=== PATIENT | female | born 1995 | race Caucasian/White ===

== ENCOUNTER 2019-10-14 08:00 | Outpatient (CLI) | payer OTHER ==
[2019-10-14 17:28] LABS: MUDS CUTOFF CONCENTRATIONS CUTOFF CONC BELOW:
[2019-10-14 17:46] LABS: BILIRUBIN,URINE NEGATIVE (NEGATIVE); GLUCOSE, URINE (UA) NEGATIVE (NEGATIVE); KETONES,URINE (UA) NEGATIVE (NEGATIVE); LEUKOCYTE ESTERASE, URINE NEGATIVE (NEGATIVE); NITRITE,URINE NEGATIVE (NEGATIVE); OCCULT BLOOD,URINE NEGATIVE (NEGATIVE); PROTEIN,URINE NEGATIVE (NEGATIVE); UROBILINOGEN,URINE 0.2 (NORMAL) E.U./dL (NORMAL)
[2019-10-14 17:54] LABS: CLARITY,URINE CLOUDY (CLEAR)
[2019-10-14 17:58] LABS: COCAINE SCREEN URINE NEGATIVE (NEGATIVE); METHAMPHETAMINES SCREEN, URINE NEGATIVE (NEGATIVE); OPIATE SCREEN, URINE NEGATIVE (NEGATIVE)
[2019-10-14 17:59] LABS: AMPHETAMINE SCREEN,URINE NEGATIVE (NEGATIVE); BENZODIAZEPINES SCREEN, URINE NEGATIVE (NEGATIVE); METHADONE SCREEN, URINE NEGATIVE (NEGATIVE); OXYCODONE SCREEN, URINE NEGATIVE (NEGATIVE); PROPOXYPHENE SCREEN, URINE NEGATIVE (NEGATIVE); TRICYCLIC ANTIDEPRESSANT,URINE NEGATIVE (NEGATIVE)
[2019-10-14 18:58] LABS: BACTERIA,URINE Rare /HPF (None Seen); RBC,URINE None Seen /HPF (0-5); SQUAMOUS EPITHELIAL CELL,UR FEW Squamous (<= Few)
== END 2019-10-14 23:59 | disposition home or self-care (01) ==
LOC: LAB.R 08:00
PROVIDERS: ATTEND Nurse Practitioner Obstetrics & Gynecology
DX: Z32.01 Encounter for pregnancy test, result positive (principal)
CPT/HCPCS: 80306; 81001; 81003; 87086

== ENCOUNTER 2019-10-29 15:03 | Emergency (ER) | payer OTHER ==
--- NOTE | 2019-10-29 15:56 | ED Physician Documentation ---
PD HPI FEMALE - Stated complaint Stated Complaint: FEM - Chief complaint Chief Complaint: Abd Pain - History obtained from History obtained from: Patient (G1, P0 at 6 weeks and 5 days has had light vaginal bleeding with mild cramping today.) Review of Systems Ten Systems: 10 systems reviewed and negative Constitutional: denies: Fever, Chills Cardiac: reports: Reviewed and negative Respiratory: reports: Reviewed and negative PD PAST MEDICAL HISTORY - Allergies Allergies/Adverse Reactions: Allergies Allergy/AdvReac Type Severity Reaction Status Date / Time No Known Drug Allergies Allergy Verified 10/29/19 15:06 PD ED PE NORMAL - Vitals Vital signs reviewed: Yes - General General: Alert and oriented X 3, No acute distress - HEENT HEENT: PERRL, EOMI - Neck Neck: Supple, no meningeal sign, No bony TTP - Cardiac Cardiac: RRR, No murmur - Respiratory Respiratory: No respiratory distress, Clear bilaterally - Female Female : Other (No obvious IUP on bedside ultrasound. No free fluid either though.) - Back Back: No CVA TTP, No spinal TTP - Derm Derm: Normal color, No rash - Neuro Neuro: Alert and oriented X 3, Normal speech Results - Vitals Vitals: Vital Signs - 24 hr 10/29/19 15:06 Temperature 36.5 C Heart Rate 87 Respiratory 16 Rate Blood Pressure 116/70 O2 Saturation 100 Oxygen O2 Source Room air - Labs Labs: Laboratory Tests 10/29/19 10/29/19 10/29/19 15:52 16:13 16:13 WBC 9.9 RBC 4.52 Hgb 13.5 Hct 39.6 MCV 87.6 MCH 29.9 MCHC 34.1 RDW 12.3 Plt Count 330 MPV 10.1 Neut # (Auto) 6.4 Lymph # (Auto) 2.4 Mcminn # (Auto) 0.5 Eos # (Auto) 0.5 Baso # (Auto) 0.0 Absolute Nucleated RBC 0.00 Nucleated RBC % 0.0 Sodium Potassium Chloride Carbon Dioxide Anion Gap BUN Creatinine Estimated GFR (MDRD) Glucose Calcium HCG, Quant Urine Color YELLOW Urine Clarity CLEAR Urine pH 7.5 Ur Specific [place] 1.015 Urine Protein NEGATIVE Urine Glucose (UA) NEGATIVE Urine Ketones NEGATIVE Urine Occult Blood MODERATE H Urine Nitrite NEGATIVE Urine Bilirubin NEGATIVE Urine Urobilinogen 0.2 (NORMAL) Ur Leukocyte Esterase NEGATIVE Urine RBC 0-5 Urine WBC 0-3 Ur Squamous Epith Cells MANY Squamous H Urine Bacteria None Seen Ur Microscopic Review INDICATED Urine Culture Comments NOT INDICATED Blood Type B NEGATIVE 10/29/19 10/29/19 16:13 16:13 WBC RBC Hgb Hct MCV MCH MCHC RDW Plt Count MPV Neut # (Auto) Lymph # (Auto) Mcminn # (Auto) Eos # (Auto) Baso # (Auto) Absolute Nucleated RBC Nucleated RBC % Sodium 139 Potassium 3.4 L Chloride 104 Carbon Dioxide 26 Anion Gap 9.0 BUN 8 Creatinine 0.6 Estimated GFR (MDRD) 125 Glucose 95 Calcium 9.7 HCG, Quant 3913.00 Urine Color Urine Clarity Urine pH Ur Specific [place] Urine Protein Urine Glucose (UA) Urine Ketones Urine Occult Blood Urine Nitrite Urine Bilirubin Urine Urobilinogen Ur Leukocyte Esterase Urine RBC Urine WBC Ur Squamous Epith Cells Urine Bacteria Ur Microscopic Review Urine Culture Comments Blood Type - Rads (name of study) OB ultrasound Radiology: EMP read contemporaneously (Apparent gestational sac attributable to early , discordant with dates.) PD MEDICAL DECISION MAKING - ED course ED course: 24-year-old hemodynamically stable woman with normal H&H presents with vaginal bleeding in early . She was pretty sure about her LMP being September 11 which puts her at 6 weeks and 5 days. Ultrasound as shown and beta-hCG 3913. Recommended 1 week repeat ultrasound in 48 hours beta-hCG. She was administered Rhophylac here Departure - Departure Disposition: Home, Self Care Condition: Good Record reviewed to determine appropriate education?: Yes Instructions: ED Miscarriage Poss Follow-Up: Manuela Orozco, DORIAN, DEFENSIVE DRIVING INSTRUCTOR [Provider Admit Priv/Credential] - 10/31/19 Comments: Beta-hCG is 3913 today, this should be rechecked in 48 hours or so. This can be done through the obstetrics office which you have already established care with, if running into trouble, return here for reevaluation. Also return if worse. Note for future reference the blood type is O-, as such you will need Rh immunoglobulin going forward with this and further pregnancies. You were administered a dose here tonight. Keep the ultrasound appointments you have already scheduled for a week from now.
[2019-10-29 16:14] LABS: BILIRUBIN,URINE NEGATIVE (NEGATIVE); GLUCOSE, URINE (UA) NEGATIVE (NEGATIVE); KETONES,URINE (UA) NEGATIVE (NEGATIVE); LEUKOCYTE ESTERASE, URINE NEGATIVE (NEGATIVE); NITRITE,URINE NEGATIVE (NEGATIVE); OCCULT BLOOD,URINE MODERATE (NEGATIVE); PH,URINE 7.5 PH (5.0-7.5); PROTEIN,URINE NEGATIVE (NEGATIVE); UROBILINOGEN,URINE 0.2 (NORMAL) E.U./dL (NORMAL)
[2019-10-29 16:15] LABS: CLARITY,URINE CLEAR (CLEAR)
[2019-10-29 16:26] LABS: BASOPHILS % (AUTO) 0.3 %; EOSINOPHILS # (AUTO) 0.5 10^3/uL (0.0-0.7); EOSINOPHILS % (AUTO) 5.3 %; HGB - HEMOGLOBIN 13.5 g/dL (12.0-16.0); LYMPHOCYTES # (AUTO) 2.4 10^3/uL (1.5-3.5); LYMPHOCYTES % (AUTO) 23.8 %; MEAN CORPUSCULAR HEMOGLOBIN 29.9 pg (27.0-31.0); MEAN CORPUSCULAR HGB CONC 34.1 g/dL (32.0-36.0); MEAN CORPUSCULAR VOLUME 87.6 fL (81.0-99.0); MEAN PLATELET VOLUME 10.1 fL (7.9-10.8); MONOCYTES # (AUTO) 0.5 10^3/uL (0.0-1.0); MONOCYTES % (AUTO) 5.3 %; NEUTROPHILS # (AUTO) 6.4 10^3/uL (1.5-6.6); PLT - PLATELET COUNT 330 10^3/uL (130-450); RED BLOOD COUNT 4.52 10^6/uL (4.20-5.40); RED CELL DISTRIBUTION WIDTH 12.3 % (12.0-15.0); WHITE BLOOD COUNT 9.9 x10^3/uL (4.8-10.8)
[2019-10-29 16:27] LABS: BACTERIA,URINE None Seen /HPF (None Seen); RBC,URINE 0-5 /HPF (0-5); SQUAMOUS EPITHELIAL CELL,UR MANY Squamous (<= Few)
[2019-10-29 16:28] LABS: CALCIUM 9.7 mg/dL (8.5-10.3); CREATININE 0.6 mg/dL (0.4-1.0)
[2019-10-29] MEDS ORDERED: RHO(D) IMMUNE GLOBULIN 300 MCG SYRINGE IM STA (16:51)
--- NOTE | 2019-10-29 17:37 | Ultrasound Report ---
PROCEDURE: OB First Trimester INDICATIONS: vag bleed 6w5d OUTSIDE/PRIOR DATING DATA: Last menstrual period (LMP): 10/09/2019. LMP-based estimated date of delivery (ANGE): 06/24/2020. First dating scan (date and location): Not applicable. Estimated date of delivery (ANGE) from first dating scan: Not applicable. TECHNIQUE: Real-time scanning was performed of the fetus and maternal pelvic organs, with image documentation. COMPARISON: None FINDINGS: Embryo: An apparent intrauterine gestational sac is seen, which measures 7 mm, which corresponds to an estimate gestational age of 5 weeks 3 days. No findings of a pole or yolk sac can be seen at this time. Heterogeneous material is seen surrounding the apparent gestational sac. Measurement variability in dating: +/- 4 weeks by LMP, +/- 7 days by mean sac diameter (use before 6 weeks gestation if crown-rump length not able to be measured), +/- 5 days by crown-rump length (6-12 weeks gestation). Maternal organs: Ovaries are within normal limits, with an apparent right ovarian corpus luteum. Li mited images through the kidneys demonstrate no hydronephrosis. IMPRESSION: An apparent intrauterine gestational sac is seen, which is attributed to an early , with an estimated gestational age of 5 weeks 3 days. Close clinical follow-up with serial beta hCG measurements are recommended, as clinically appropriate . Note: Concordant preliminary findings given by the inspector boiler upon the completion of the examination to Dr. Doyle at 5:00 PM on 10/28/2019 Reviewed by: Malik Jones MD on 10/29/2019 4:36 PM YONATAN Approved by: Malik Jones MD on 10/29/2019 4:36 PM YONATAN Station ID: [id number]
[2019-10-29] MEDS ORDERED: RHO(D) IMMUNE GLOBULIN 300 MCG SYRINGE ONE (17:45)
[2019-10-29 17:55] VITALS: BP 110/79
--- NOTE | 2019-10-29 18:29 | Ultrasound Report ---
PROCEDURE: OB Transvaginal INDICATIONS: vag bleed 6w5d OUTSIDE/PRIOR DATING DATA: Last menstrual period (LMP): 10/09/2019. LMP-based estimated date of deliv jacky (ANGE): 06/24/2020. First dating scan (date and location): Not applicable. Estimated date of delive ry (ANGE) from first dating scan: Not applicable. TECHNIQUE: Real-time scanning was performed of the fetus and maternal pelvic organs, with image documentation. COMPARISON: None FINDINGS: Embryo: An a pparent intrauterine gestational sac is seen, which measures 7 mm, which corresponds to an estimate g estational age of 5 weeks 3 days. No findings of a pole or yolk sac can be seen at this time. H eterogeneous material is seen surrounding the apparent gestational sac. Measurement variability in d ating: +/- 4 weeks by LMP, +/- 7 days by mean sac diameter (use before 6 weeks gestation if crown-rum p length not able to be measured), +/- 5 days by crown-rump length (6-12 weeks gestation). Maternal organs: Ovaries are within normal limits, with an apparent right ovarian corpus luteum. Limited image s through the kidneys demonstrate no hydronephrosis. IMPRESSION: An apparent intrauterine gestati onal sac is seen, which is attributed to an early , with an estimated gestational age of 5 w eeks 3 days. Close clinical follow-up with serial beta hCG measurements are recommended, as clinical ly appropriate. Note: Concordant preliminary findings given by the pile driving supervisor upon the completion of the examination to Dr. Doyle at 5:00 PM on 10/28/2019 Reviewed by: Malik Jones MD on 10/29/2019 5:27 PM YONATAN Approved by: Malik Jones MD on 10/29/2019 5:27 PM YONATAN Station ID: [id number]
== END 2019-10-29 18:04 | disposition home or self-care (01) ==
LOC: ED 15:03
DX: O20.0 Threatened abortion (principal); Z3A.01 Less than 8 weeks gestation of pregnancy
CPT/HCPCS: 36415; 76801; 76817; 80048; 81001; 81003; 84702; 85025; 86900; 86901; 87086; 96372; 99284

== ENCOUNTER 2019-10-30 00:02 | Emergency (ER) | payer OTHER ==
--- NOTE | 2019-10-30 00:19 | ED Physician Documentation ---
PD HPI FEMALE - Stated complaint Stated Complaint: F /CRAMPS - Chief complaint Chief Complaint: Abd Pain - History obtained from History obtained from: Patient - History of Present Illness Timing - onset: Today Timing - details: Abrupt onset, Intermittant Associated symptoms: Pelvic pain, Vaginal bleeding. No: Fever Contributing factors: OB-PSYCHIATRY RESIDENT History: G (1), P (0) Recently seen: Emergency Dept - Additional information Additional information: T+R earlier this afternoon for threatened miscarriage (vaginal bleeding in first trimester). w/u included blood tests and US. she returns due to mild increased bleeding but mostly due to increased pelvic cramping pain Review of Systems Constitutional: reports: Reviewed and negative Cardiac: reports: Reviewed and negative Respiratory: reports: Reviewed and negative GI: denies: Abdominal Pain (pelvic cramping but not abdominal pain per se), Nausea, Vomiting : reports: Now EGA. denies: Dysuria, Frequency PD PAST MEDICAL HISTORY - Past Medical History Cardiovascular: None Respiratory: None Neuro: None Endocrine/Autoimmune: None GI: None PSYCHIATRY RESIDENT: None : None HEENT: None Psych: None Musculoskeletal: None Derm: None - Past Surgical History Past Surgical History: No - Present Medications Home Medications: Ambulatory Orders Medication Instructions Recorded Confirmed HYDROcod/ACETAM 5/325 [Bynum 5/325] 1 - 2 ea PO Q6H PRN #8 tablet 10/30/19 - Allergies Allergies/Adverse Reactions: Allergies Allergy/AdvReac Type Severity Reaction Status Date / Time No Known Drug Allergies Allergy Verified 10/30/19 00:04 - Social History Does the pt smoke?: No Smoking Status: Never smoker Does the pt drink ETOH?: No Does the pt have substance abuse?: No - Immunizations Immunizations are current?: Yes - POLST Patient has POLST: No PD ED PE NORMAL - Vitals Vital signs reviewed: Yes - General General: Alert and oriented X 3, No acute distress, Well developed/nourished - Abdomen Abdomen: Soft, Non tender, Non distended - Back Back: No CVA TTP Results - Vitals Vitals: Vital Signs - 24 hr 10/30/19 10/30/19 10/30/19 00:04 00:07 01:47 Temperature 36.5 C 4 C L 36.9 C Heart Rate 98 75 Respiratory 14 18 Rate Blood Pressure 117/66 100/68 O2 Saturation 100 100 Oxygen O2 Source Room air PD MEDICAL DECISION MAKING - ED course Complexity details: reviewed old records, re-evaluated patient, considered differential, d/w patient ED course: patient describes mild vaginal bleeding with increased bleeding since evaluation in this ED earlier this afternoon (asked if it is less than a pad per hour, she confidently answers in the affirmative). her chief concern is pelvic cramping that is intense and uncomfortable. repeat emergent testing is not indicated at this time. focussed on pain control and options discussed, she is given 2 tablets 5mg / 325mg hydrocodone/acetaminophen and on reevaluation reports good pain relief and is comfortable with d/c home, return if worse. Departure - Departure Disposition: Home, Self Care Clinical Impression: Vaginal bleeding during Condition: Good Instructions: ED Miscarriage Poss Follow-Up: Indu Maldonado MD [Provider Admit Priv/Credential] - Prescriptions: HYDROcod/ACETAM 5/325 [Bynum 5/325] 1 - 2 ea PO Q6H PRN #8 tablet PRN Reason: Pain Comments: Your blood type is B NEGATIVE (the instructions provided on your previous visit were incorrect). Discharge Date/Time: 10/30/19 01:40
[2019-10-30] MEDS ORDERED: HYDROcod/ACETAM 5/325 MG TABLET PO STA (00:57)
[2019-10-30 01:48] VITALS: BP 100/68
== END 2019-10-30 01:40 | disposition home or self-care (01) ==
LOC: ED 00:02
DX: O46.91 Antepartum hemorrhage, unspecified, first trimester (principal); Z3A.00 Weeks of gestation of pregnancy not specified
CPT/HCPCS: 99282; 99283; A9270

== ENCOUNTER 2019-10-31 11:58 | Outpatient (CLI) | payer OTHER | END 2019-10-31 11:59 | disposition home or self-care (01) | LOC: LAB 11:58 | PROVIDERS: ATTEND Obstetrics & Gynecology | DX: O03.9 Complete or unspecified spontaneous abortion without complication (principal) | CPT/HCPCS: 36415; 84702 ==

== ENCOUNTER 2019-11-10 10:11 | Outpatient (CLI) | payer OTHER | END 2019-11-10 10:12 | disposition home or self-care (01) | LOC: LAB 10:11 | PROVIDERS: ATTEND Nurse Practitioner Obstetrics & Gynecology | DX: O03.9 Complete or unspecified spontaneous abortion without complication (principal) | CPT/HCPCS: 36415; 84702 ==

== ENCOUNTER 2019-11-25 08:51 | Outpatient (CLI) | payer OTHER | END 2019-11-25 08:52 | disposition home or self-care (01) | LOC: LAB 08:51 | PROVIDERS: ATTEND Nurse Practitioner Obstetrics & Gynecology | DX: O03.9 Complete or unspecified spontaneous abortion without complication (principal) | CPT/HCPCS: 36415; 84702 ==

== ENCOUNTER 2019-11-28 08:23 | Outpatient (CLI) | payer OTHER | END 2019-11-28 08:24 | disposition home or self-care (01) | LOC: LAB 08:23 | PROVIDERS: ATTEND Nurse Practitioner Obstetrics & Gynecology | DX: Z32.01 Encounter for pregnancy test, result positive (principal) | CPT/HCPCS: 36415; 84702 ==

== ENCOUNTER 2019-11-30 08:00 | Outpatient (CLI) | payer OTHER ==
[2019-11-30 15:59] LABS: MUDS CUTOFF CONCENTRATIONS CUTOFF CONC BELOW:
[2019-11-30 17:55] LABS: BILIRUBIN,URINE NEGATIVE (NEGATIVE); GLUCOSE, URINE (UA) NEGATIVE (NEGATIVE); KETONES,URINE (UA) NEGATIVE (NEGATIVE); LEUKOCYTE ESTERASE, URINE NEGATIVE (NEGATIVE); NITRITE,URINE NEGATIVE (NEGATIVE); OCCULT BLOOD,URINE NEGATIVE (NEGATIVE); PH,URINE 5.5 PH (5.0-7.5); PROTEIN,URINE NEGATIVE (NEGATIVE); UROBILINOGEN,URINE 0.2 (NORMAL) E.U./dL (NORMAL)
[2019-11-30 18:03] LABS: BACTERIA,URINE None Seen /HPF (None Seen); CLARITY,URINE CLEAR (CLEAR); CRYSTALS,URINE 0-2 Uric Acid /LPF; RBC,URINE None Seen /HPF (0-5); SQUAMOUS EPITHELIAL CELL,UR FEW Squamous (<= Few)
[2019-11-30 18:04] LABS: AMPHETAMINE SCREEN,URINE NEGATIVE (NEGATIVE); BENZODIAZEPINES SCREEN, URINE NEGATIVE (NEGATIVE); COCAINE SCREEN URINE NEGATIVE (NEGATIVE); METHADONE SCREEN, URINE NEGATIVE (NEGATIVE); METHAMPHETAMINES SCREEN, URINE NEGATIVE (NEGATIVE); OPIATE SCREEN, URINE NEGATIVE (NEGATIVE); OXYCODONE SCREEN, URINE NEGATIVE (NEGATIVE); PROPOXYPHENE SCREEN, URINE NEGATIVE (NEGATIVE); TRICYCLIC ANTIDEPRESSANT,URINE NEGATIVE (NEGATIVE)
== END 2019-11-30 23:59 | disposition home or self-care (01) ==
LOC: LAB.R 08:00
PROVIDERS: ATTEND Nurse Practitioner Obstetrics & Gynecology
DX: Z32.01 Encounter for pregnancy test, result positive (principal)
CPT/HCPCS: 80306; 81001; 87086

== ENCOUNTER 2019-12-02 09:19 | Outpatient (CLI) | payer OTHER | END 2019-12-02 09:20 | disposition home or self-care (01) | LOC: LAB 09:19 | PROVIDERS: ATTEND Nurse Practitioner Obstetrics & Gynecology | DX: Z32.01 Encounter for pregnancy test, result positive (principal) | CPT/HCPCS: 36415; 84702 ==

== ENCOUNTER 2019-12-06 07:30 | Outpatient (CLI) | payer OTHER ==
--- NOTE | 2019-12-06 11:29 | Ultrasound Report ---
PROCEDURE: OB First Trimester INDICATIONS: TEST POSITIVE OUTSIDE/PRIOR DATING DATA: Last menstrual period (LMP): Unknown. LMP-based estimated date of delivery (ANGE): Unknown. First dating scan (date and location): 12/06/2019. Estimated date of delivery (ANGE) from first dating scan: Estimated 08/04/2020 based on MGSD. TECHNIQUE: Real-time scanning was performed of the fetus and maternal pelvic organs, with image documentation. COMPARISON: None. FINDINGS: Embryo: Intrauterine gestational sac with a mean diameter of 0.73 cm, corresponding to estimated ges tational age of 5 weeks 3 days. Yolk sac measuring 0.2 cm is noted. No pole at this time. Measurement variability in dating: +/- 4 weeks by LMP, +/- 7 days by mean sac diameter (use before 6 weeks gestation if crown-rump length not able to be measured), +/- 5 days by crown-rump length (6-12 weeks gestation). Maternal organs: Ovaries are within normal limits. Right corpus luteum. Trace free fluid adjacent to the right adnexa. Limited images through the kidneys demonstrate no hydronephrosis. IMPRESSION: 1. Intrauterine at approximately 5 weeks 3 days based on today's ultrasound MGSD. -Recommend short-term follow-up OB ultrasound to document crown-rump length. 2. No perigestational hemorrhage. Reviewed by: Ta Alvarez MD on 12/06/2019 11:28 AM PDT Approved by: Ta Alvarez MD on 12/06/2019 11:28 AM PDT Station ID: [id number]
== END 2019-12-06 07:31 | disposition home or self-care (01) ==
LOC: DI 07:30
PROVIDERS: ATTEND Nurse Practitioner Obstetrics & Gynecology
DX: Z32.01 Encounter for pregnancy test, result positive (principal)
CPT/HCPCS: 76801; 76817

== ENCOUNTER 2019-12-09 12:23 | Outpatient (CLI) | payer OTHER | END 2019-12-09 12:24 | disposition home or self-care (01) | LOC: LAB 12:23 | PROVIDERS: ATTEND Nurse Practitioner Obstetrics & Gynecology | DX: Z32.01 Encounter for pregnancy test, result positive (principal) | CPT/HCPCS: 36415; 84702 ==

== ENCOUNTER 2019-12-15 08:46 | Outpatient (CLI) | payer OTHER ==
[2019-12-15 09:06] LABS: BASOPHILS % (AUTO) 0.2 %; EOSINOPHILS # (AUTO) 0.5 10^3/uL (0.0-0.7); EOSINOPHILS % (AUTO) 5.7 %; MEAN CORPUSCULAR HGB CONC 33.9 g/dL (32.0-36.0); MEAN CORPUSCULAR VOLUME 88.5 fL (81.0-99.0); MONOCYTES # (AUTO) 0.6 10^3/uL (0.0-1.0); MONOCYTES % (AUTO) 7.1 %; NEUTROPHILS # (AUTO) 5.7 10^3/uL (1.5-6.6); NEUTROPHILS % (AUTO) 63.7 %; PLT - PLATELET COUNT 313 10^3/uL (130-450); RED BLOOD COUNT 4.33 10^6/uL (4.20-5.40); RED CELL DISTRIBUTION WIDTH 12.4 % (12.0-15.0); WHITE BLOOD COUNT 8.9 x10^3/uL (4.8-10.8)
[2019-12-16 12:58] LABS: HEPATITIS B SURFACE ANTIGEN NON-REACTIVE (NON-REACTIVE); HEPATITIS C ANTIBODY NON-REACTIVE (NON-REACTIVE)
[2019-12-16 14:26] LABS: HIV AG/AB 4TH GEN NON-REACTIVE (NON-REACTIVE)
== END 2019-12-15 08:47 | disposition home or self-care (01) ==
LOC: LAB 08:46
PROVIDERS: ATTEND Advanced Practice Midwife
DX: Z34.90 Encounter for supervision of normal pregnancy, unspecified, unspecified trimester (principal); Z36.89 Encounter for other specified antenatal screening
CPT/HCPCS: 36415; 81599; 85025; 86592; 86762; 86787; 86803; 86850; 86870; 86900; 86901; 87340; 87389

== ENCOUNTER 2019-12-20 08:42 | Outpatient (CLI) | payer OTHER ==
--- NOTE | 2019-12-20 11:30 | Ultrasound Report ---
PROCEDURE: OB First Trimester INDICATIONS: TEST POSITIVE- DATING OUTSIDE/PRIOR DATING DATA: Last menstrual period (LMP): Not available. LMP-based estimated date of delivery (ANGE): Not available. First dating scan (date and location): 12/06/2019. Estimated date of delivery (ANEG) from first dating scan: 08/06/2020, +/- 7 days. TECHNIQUE: Real-time scanning was performed of the fetus and maternal pelvic organs, with image documentation. COMPARISON: Prior OB ultrasound 12/06/2019 FINDINGS: [place]-rump length 1.1 cm correlates with a gestational age of 7 weeks 1 day, +/- 5 days. F etal heart rate of 140 bpm was observed. Measurement variability in dating: +/- 4 weeks by LMP, +/- 7 days by mean sac diameter (use before 6 weeks gestation if crown-rump length not able to be measured), +/- 5 days by crown-rump length (6-12 weeks gestation). Maternal organs: Ovaries normal considering gestational status. Limited images through the kidneys demonstrate no hydronephrosis. IMPRESSION: Appropriate interval growth, over the prior short period of time from first OB ultrasound. card iac activity is currently well visualized, and the delivery date is projected to be centered on 2020. Follow-up anatomic survey at 20 weeks gestation is recommended. Reviewed by: Sunil Izaguirre MD on 12/20/2019 11:28 AM PST Approved by: Sunil Izaguirre MD on 12/20/2019 11:28 AM PST Station ID: [id number]
== END 2019-12-20 08:43 | disposition home or self-care (01) ==
LOC: DI 08:42
PROVIDERS: ATTEND Nurse Practitioner Obstetrics & Gynecology
DX: Z32.01 Encounter for pregnancy test, result positive (principal)
CPT/HCPCS: 76801

== ENCOUNTER 2020-01-12 08:41 | Outpatient (CLI) | payer OTHER | END 2020-01-12 08:42 | disposition home or self-care (01) | LOC: LAB 08:41 | PROVIDERS: ATTEND Advanced Practice Midwife | DX: Z36.0 Encounter for antenatal screening for chromosomal anomalies (principal) | CPT/HCPCS: 36415; 81599 ==

== ENCOUNTER 2020-02-23 10:19 | Outpatient (CLI) | payer OTHER | END 2020-02-23 10:20 | disposition home or self-care (01) | LOC: LAB 10:19 | PROVIDERS: ATTEND Advanced Practice Midwife | DX: Z34.90 Encounter for supervision of normal pregnancy, unspecified, unspecified trimester (principal); Z36.0 Encounter for antenatal screening for chromosomal anomalies | CPT/HCPCS: 36415; 81511; 81599 ==

== ENCOUNTER 2020-03-19 12:21 | Outpatient (CLI) | payer OTHER ==
--- NOTE | 2020-03-19 16:26 | Ultrasound Report ---
PROCEDURE: OB Detailed Eval INDICATIONS: SCREENING, SUPERVISION OF OUTSIDE/PRIOR DATING DATA: Last menstrual period (LMP): Unknown. LMP-based estimated date of delivery (ANGE): Unknown. First dating scan (date and location): 12/20/2019. Estimated date of delivery (ANGE) from first dating scan: 08/06/2020. TECHNIQUE: Real-time scanning was performed of the fetus, with image documentation and biometric measurements. COMPARISON: OB ultrasound 10/29/2019, 12/06/2019, 12/20/2019, 03/19/2020 FINDINGS: General: A single living intrauterine gestation is present. Presentation: Transverse Placenta: Placental position is posterior, without previa. Amniotic fluid index: 15.7 cm, 64th percentile for gestational age. Largest pocket 5.6 cm. heart rate: 155 beats per minute. Maternal cervical canal: 4.1 cm long; normal length is 2.5 cm or more. biometrics: Biparietal diameter: 4.6 cm 20 weeks 1 day Head circumference: 17.4 cm 19 weeks 6 days Abdominal circumference: 15 cm 20 weeks 2 days Femur length: 3.2 cm 19 weeks 6 days Estimated gestational age from initial scan: 20 weeks 0 days Composite gestational age from present scan: 20 weeks 0 days Estimated weight and percentile: 330 g 49th percentile Measurement variability in biometric dating: +/- 10 days from 12-20 weeks gestation, +/- 2 weeks from 20-30 weeks gestation, +/- 3 weeks at 30 weeks gestation or later. Anatomic survey: Neuro: Ventricles are normal at less than 10 mm. Cisterna magna is normal at 3-11 mm. Cerebellum i s normal in size and morphology. Nuchal skin fold: Normal at less than 6 mm between 14 and 20 weeks gestational age. Face: Nose and lips, facial profile are normal. Spine: No evidence for spina bifida. Heart: 4-chambered heart is present, with echogenic focus is noted within the left ventricle. Outflo w tracts are suboptimally evaluated. Diaphragm: Diaphragm is intact. Stomach: Left-sided stomach is present. Kidneys: No hydronephrosis. Normal is less than 5 mm in 2nd trimester, less than 7 mm in 3rd trimester. Cord: 3 vessel cord has orthotopic insertion. Bladder: Normal in size. Extremities: All 4 extremities are visualized. IMPRESSION: 1. Single live intrauterine patency with ultrasound gestational age today of 20 weeks 0 days compared to 20 weeks 0 days from initial ultrasound. 2. Outflow tracts are suboptimally evaluated. Recommend interval imaging follow-up. 3. Ventricular echogenic focus as above, overall nonspecific, though can be seen with syndromes. Ronnie mmend continued interval follow-up as well as additional laboratory markers as clinically indicated. Reviewed by: Sarah Navarro MD on 03/19/2020 4:25 PM PST Approved by: Sarah Navarro MD on 03/19/2020 4:25 PM PST Station ID: [id number]
== END 2020-03-19 12:22 | disposition home or self-care (01) ==
LOC: DI 12:21
PROVIDERS: ATTEND Advanced Practice Midwife
DX: Z34.92 Encounter for supervision of normal pregnancy, unspecified, second trimester (principal); Z36.0 Encounter for antenatal screening for chromosomal anomalies

== ENCOUNTER 2020-03-22 07:00 | Outpatient (CLI) | payer OTHER | END 2020-03-22 23:59 | disposition home or self-care (01) | LOC: LAB.R 07:00 | PROVIDERS: ATTEND Advanced Practice Midwife | DX: N76.0 Acute vaginitis (principal) | CPT/HCPCS: 87491; 87591; 87661 ==

== ENCOUNTER 2020-04-06 14:28 | Outpatient (CLI) | payer OTHER ==
--- NOTE | 2020-04-06 16:35 | Ultrasound Report ---
PROCEDURE: OB F/U or Repeat INDICATIONS: SUPERVISION OF OUTSIDE/PRIOR DATING DATA: Last menstrual period (LMP): 10/09/2019. LMP-based estimated date of delivery (ANGE): 06/24/2020. First dating scan (date and location): Not applicable. Estimated date of delivery (ANGE) from first dating scan: Not applicable. TECHNIQUE: Real-time scanning was performed of the fetus, with image documentation and biometric measurements. Endovaginal scanning: Not performed COMPARISON: None. FINDINGS: General: A single living intrauterine gestation is present. Presentation: Breech Placenta: Placental position is posterior, without previa. Amniotic fluid index: 15.7 cm, 60th percentile for gestational age. heart rate: 143 beats per minute. Maternal cervical canal: 5.5 cm long; normal length is 2.5 cm or more. Anatomy: Ventricular outflow tracts are well visualized on this exam and appear normal. Unchanged left ventric ular echogenic focus. Four-chamber cardiac anatomy redemonstrated. IMPRESSION: Limited study performed to reassess the ventricular outflow tracts. Normal appearance of both ventric ular outflow tracts on this exam. Single live intrauterine gestation with normal CARLYLE. Reviewed by: Mikael Webster MD on 04/06/2020 4:34 PM PST Approved by: Mikael Webster MD on 04/06/2020 4:34 PM PST Station ID: [id number]
== END 2020-04-06 14:29 | disposition home or self-care (01) ==
LOC: DI 14:28
PROVIDERS: ATTEND Nurse Practitioner Obstetrics & Gynecology
DX: Z34.90 Encounter for supervision of normal pregnancy, unspecified, unspecified trimester (principal)

== ENCOUNTER 2020-04-29 11:14 | Outpatient (CLI) | payer OTHER ==
[2020-04-29 12:58] LABS: HGB - HEMOGLOBIN 11.1 g/dL (12.0-16.0); MEAN CORPUSCULAR HEMOGLOBIN 30.4 pg (27.0-31.0); MEAN CORPUSCULAR HGB CONC 32.6 g/dL (32.0-36.0); MEAN CORPUSCULAR VOLUME 93.2 fL (81.0-99.0); MEAN PLATELET VOLUME 10.2 fL (7.9-10.8); RED BLOOD COUNT 3.65 10^6/uL (4.20-5.40); RED CELL DISTRIBUTION WIDTH 13.8 % (12.0-15.0); WHITE BLOOD COUNT 10.6 x10^3/uL (4.8-10.8)
== END 2020-04-29 11:15 | disposition home or self-care (01) ==
LOC: LAB 11:14
PROVIDERS: ATTEND Advanced Practice Midwife
DX: Z34.90 Encounter for supervision of normal pregnancy, unspecified, unspecified trimester (principal); Z36.89 Encounter for other specified antenatal screening
CPT/HCPCS: 36415; 82950; 85027; 86850

== ENCOUNTER 2020-05-04 06:27 | Outpatient (CLI) | payer OTHER ==
[2020-05-04 07:06] LABS: GTT GLUCOSE,FASTING 86 mg/dL (70-100)
== END 2020-05-04 06:28 | disposition home or self-care (01) ==
LOC: LAB 06:27
PROVIDERS: ATTEND Advanced Practice Midwife
DX: O99.810 Abnormal glucose complicating pregnancy (principal)
CPT/HCPCS: 36415; 82951; 82952; 85027; 86850

== ENCOUNTER 2020-06-15 12:01 | Outpatient (CLI) | payer OTHER ==
[2020-06-15 13:18] VITALS: BP 112/64
[2020-06-15 13:35] LABS: BILIRUBIN,URINE NEGATIVE (NEGATIVE); CLARITY,URINE HAZY (CLEAR); GLUCOSE, URINE (UA) NEGATIVE (NEGATIVE); KETONES,URINE (UA) NEGATIVE (NEGATIVE); LEUKOCYTE ESTERASE, URINE NEGATIVE (NEGATIVE); NITRITE,URINE NEGATIVE (NEGATIVE); OCCULT BLOOD,URINE NEGATIVE (NEGATIVE); PROTEIN,URINE NEGATIVE (NEGATIVE); UROBILINOGEN,URINE 0.2 (NORMAL) E.U./dL (NORMAL)
[2020-06-15 13:45] LABS: AMORPHOUS SEDIMENT,UR Few /LPF; BACTERIA,URINE Rare /HPF (None Seen); RBC,URINE None Seen /HPF (0-5); SQUAMOUS EPITHELIAL CELL,UR FEW Squamous (<= Few); WBC,URINE 0-3 /HPF (0-5)
--- NOTE | 2020-06-15 13:54 | PROVIDER PROGRESS NOTE ---
- HPI Chief Complaint: Pain, non-labor Current : Current EDU 08/04/20 Gestation 32 Weeks and 6 Days 2 Para 0 Vital Signs Temperature 36.8 C 06/15/20 12:19 Heart Rate 83 06/15/20 12:19 Respiratory Rate 16 06/15/20 12:19 Blood Pressure 112/64 06/15/20 12:19 O2 Saturation 99 06/15/20 12:19 Temperature 36.8 C 06/15/20 12:19 Heart Rate 83 06/15/20 12:19 Respiratory Rate 16 06/15/20 12:19 Blood Pressure 112/64 06/15/20 12:19 O2 Saturation 99 06/15/20 12:19 - Procedures OB Procedure Performed: NST Diagnosis/Indication for NST: Other Service Date of procedure: 06/15/20 - Plan Plan: Pt evaluated face to face S:Stephanie is a @ 32.6wks by LMP c/w 7.1wk U/S who presents to [facility] with c/o left upper quadrant pain under the rib cage that was causing her so much pain it was bringing her to tears. She felt her abdomen was tight intermittently when the pain was happening. She denies vaginal bleeding or leakage of fluid. She had called earlier in the day and was instructed to hydrate, rest, and take 1000mg of tylenol. She states she hydrated and did rest but she did not take tylenol. She has been warning her maternity support belt regularly but she does not feel like it is helping all that much. She is wearing it rather high on her belly today. She is supported by her partner. O:NST performed 06/15/2020 NST read 06/15/2020 NST reactive. FHR baseline 135, moderate variability, + accels, no decels No contractions appreciated via tocometry UA negative A: 24yo @ 32.6wks gestation Round ligament pain P: Demonstrated to pt how to appropriately wear maternity support belt for most benefit. Reviewed PTL precautions and warning s/sx and when to present. Pt has emergency contact information. Encouraged increased fluid intake and rest. Advised Tylenol 1000mg PRN pain. Also discussed simethicone PRN gas. Pt verbalized understanding and agrees to above plan. She denies further questions or concerns at this time. FINAL DIAGNOSIS: Round ligament pain
== END 2020-06-15 13:48 | disposition home or self-care (01) ==
LOC: WFO 12:01 → FBP 12:09 → WFO 13:48
PROVIDERS: ATTEND Nurse Practitioner Obstetrics & Gynecology
DX: O99.891 Other specified diseases and conditions complicating pregnancy (principal); R10.12 Left upper quadrant pain; Z3A.32 32 weeks gestation of pregnancy
CPT/HCPCS: 81001; 87086; 99212; 99214

== ENCOUNTER 2020-07-04 07:26 | Outpatient (CLI) | payer OTHER ==
[2020-07-04 08:08] VITALS: BP 113/72
[2020-07-04 08:55] LABS: BILIRUBIN,URINE NEGATIVE (NEGATIVE); GLUCOSE, URINE (UA) NEGATIVE (NEGATIVE); KETONES,URINE (UA) NEGATIVE (NEGATIVE); LEUKOCYTE ESTERASE, URINE NEGATIVE (NEGATIVE); NITRITE,URINE NEGATIVE (NEGATIVE); OCCULT BLOOD,URINE NEGATIVE (NEGATIVE); PROTEIN,URINE NEGATIVE (NEGATIVE); UROBILINOGEN,URINE 0.2 (NORMAL) E.U./dL (NORMAL)
[2020-07-04 08:56] LABS: CLARITY,URINE CLEAR (CLEAR)
[2020-07-04 09:04] LABS: BACTERIA,URINE Moderate /HPF (None Seen); RBC,URINE 0-5 /HPF (0-5); SQUAMOUS EPITHELIAL CELL,UR MANY Squamous (<= Few); WBC,URINE 0-3 /HPF (0-5)
--- NOTE | 2020-07-04 13:43 | PROVIDER PROGRESS NOTE ---
- HPI Chief Complaint: Labor Current : Current EDU 08/04/20 Gestation 35 Weeks and 4 Days 2 Para 0 Vital Signs Temperature 36.7 C 07/04/20 07:59 Heart Rate 93 07/04/20 07:59 Respiratory Rate 16 07/04/20 07:59 Blood Pressure 113/72 07/04/20 07:59 Temperature 36.7 C 07/04/20 07:59 Heart Rate 93 07/04/20 07:59 Respiratory Rate 16 07/04/20 07:59 Blood Pressure 113/72 07/04/20 07:59 O2 Saturation - Procedures OB Procedure Performed: NST Diagnosis/Indication for NST: labor Service Date of procedure: 07/04/20 - Plan Plan: Pt evaluated face to face Stephanie is a 25yo @ 35.4wks gestation by LMP c/w 7.1wk U/S who presents to [facility] with c/o contractions which woke her up through the night. She states most of the contractions are "not that bad" but she is worried about how often they are happening. She denies vaginal bleeding or leakage of fluid. She reports +FM. She denies changes in vaginal discharge. She denies urinary symptoms. O: NST performed 07/04/2020 NST read 07/04/2020 NST reactive. FHR baseline 135, moderate variability, + accels, no decels Contractions palpate mild intermittently -appears to be uterine irritability SVE closed/thick/high UA collected - pending A: 25yo @ 35.4wks gestation False labor <37wks gestation P: Pt released home with precautions. She has emergency contact number. She verbalized understanding and agrees to above plan. She denies further questions or concerns at this time. FINAL DIAGNOSIS: False labor <37wks gestation.
== END 2020-07-04 08:45 | disposition home or self-care (01) ==
LOC: WFO 07:26 → FBP 07:32 → WFO 08:45
PROVIDERS: ATTEND Obstetrics & Gynecology
DX: O47.03 False labor before 37 completed weeks of gestation, third trimester (principal); Z3A.37 37 weeks gestation of pregnancy
CPT/HCPCS: 81001; 87086; 99212; 99214

== ENCOUNTER 2020-07-12 09:47 | Outpatient (CLI) | payer OTHER ==
[2020-07-12 09:58] VITALS: BP 121/73
[2020-07-12 10:36] LABS: BILIRUBIN,URINE NEGATIVE (NEGATIVE); GLUCOSE, URINE (UA) NEGATIVE (NEGATIVE); KETONES,URINE (UA) NEGATIVE (NEGATIVE); LEUKOCYTE ESTERASE, URINE NEGATIVE (NEGATIVE); NITRITE,URINE NEGATIVE (NEGATIVE); OCCULT BLOOD,URINE NEGATIVE (NEGATIVE); PROTEIN,URINE NEGATIVE (NEGATIVE); UROBILINOGEN,URINE 0.2 (NORMAL) E.U./dL (NORMAL)
[2020-07-12 10:38] LABS: CLARITY,URINE CLEAR (CLEAR)
--- NOTE | 2020-07-12 10:42 | PROVIDER PROGRESS NOTE ---
- HPI Chief Complaint: Labor Check Current : Current EDU 08/03/20 Gestation 36 Weeks and 6 Days 2 Para 0 Vital Signs Temperature 37.0 C 07/12/20 09:57 Heart Rate 87 07/12/20 09:57 Respiratory Rate 16 07/12/20 09:57 Blood Pressure 121/73 07/12/20 09:57 O2 Saturation 100 07/12/20 09:57 Temperature 37.0 C 07/12/20 09:57 Heart Rate 87 07/12/20 09:57 Respiratory Rate 16 07/12/20 09:57 Blood Pressure 121/73 07/12/20 09:57 O2 Saturation 100 07/12/20 09:57 - Procedures OB Procedure Performed: NST Diagnosis/Indication for NST: Decreased movement Service Date of procedure: 07/12/20 - Plan Plan: Pt evaluated face to face S: Stephanie presents today with her partner with c/o contractions and decreased movement. She states for the past several days her back has been aching. She was instructed by the clinic RN to wear her maternity support belt and try a heating pad to improve her pain which she tried and has not helped this morning. In addition she reports her pain is now radiating to her sides. States decreased movement is just during that day and she can feel her move more frequently each evening. She is feeling that the movements are just less exaggerated. She denies urinary symptoms. She reports regular bowel movements. She denies vaginal bleeding or leakage of fluid. O: Vital signs WNL NST performed 07/12/2020 NST read 07/12/2020 FHR baseline 140, moderate variability, + accels, no decels 2 contractions via tocometry in 30 minutes which palpate mild with soft resting tone SVE fingertip/long/high, posterior UA -pending A: 25yo @ 36.5wks gestation Back pain P: Pt released home with precautions. Encouraged her to use maternity support belt consistently. Reviewed labor precautions and when to present. Pt verbalized understanding and agrees to above plan. She denies further questions or concerns at this time. FINAL DIAGNOSIS: Back pain in
== END 2020-07-12 10:45 | disposition home or self-care (01) ==
LOC: WFO 09:47 → FBP 09:48 → WFO 10:45
PROVIDERS: ATTEND Nurse Practitioner Obstetrics & Gynecology
DX: O99.891 Other specified diseases and conditions complicating pregnancy (principal); M54.9 Dorsalgia, unspecified
CPT/HCPCS: 59025; 81001; 81003; 87086; 99213

== ENCOUNTER 2020-07-13 08:00 | Outpatient (CLI) | payer OTHER | END 2020-07-13 23:59 | disposition home or self-care (01) | LOC: LAB.WC 08:00 | PROVIDERS: ATTEND Nurse Practitioner Obstetrics & Gynecology | DX: Z36.85 Encounter for antenatal screening for Streptococcus B (principal) | CPT/HCPCS: 87797 ==

== ENCOUNTER 2022-03-18 17:30 | Outpatient (CLI) | payer OTHER ==
--- NOTE | 2022-03-18 18:26 | Ultrasound Report ---
PROCEDURE: OB First Trimester INDICATIONS: NO CARDIAC ACTIVITY ON BEDSIDE US/THREATENED ABORT OUTSIDE/PRIOR DATING DATA: Last menstrual period (LMP): 01/11/2022. LMP-based estimated date of delivery (ANGE): 10/18/2022. First dating scan (date and location): 03/18/2022. Estimated date of delivery (ANGE) from first dating scan: 10/14/2022. The below data below was generated using the working ANGE of 10/14/2022 TECHNIQUE: Real-time scanning was performed of the fetus and maternal pelvic organs, with image documentation. COMPARISON: None FINDINGS: Embryo: Single intrauterine gestational sac is seen with fetus and yolk sac seen. [place]-rump length measures 3.15 cm. Estimated gestational age is 10 weeks, 0 day. Heart rate: 167 bpm. Cervix is closed and is normal in length. Small subchorionic hemorrhage measures 2.5 x 1.3 x 3.6 cm i s seen. Measurement variability in dating: +/- 4 weeks by LMP, +/- 7 days by mean sac diameter (use before 6 weeks gestation if crown-rump length not able to be measured), +/- 5 days by crown-rump length (6-12 weeks gestation). Maternal organs: Corpus luteum is noted in right ovary measures 1.9 x 1.8 x 2 cm in size. Normal appe aring left ovary. IMPRESSION: 1. Single live intrauterine gestation with fetus and yolk sac seen. heart rate is 167 bpm. Esme mated gestational age is 10 weeks, 0 day. 2. Cervix is closed. Cervical length is visually normal. 3. Small subchorionic hemorrhage as above. 4. Right-sided corpus luteum as above. Reviewed by: Varinder Jennings MD on 03/18/2022 6:24 PM PST Approved by: Varinder Jennings MD on 03/18/2022 6:24 PM PST Station ID: [id number]
== END 2022-03-18 17:31 | disposition home or self-care (01) ==
LOC: DI 17:30
PROVIDERS: ATTEND Nurse Practitioner Obstetrics & Gynecology
DX: O20.0 Threatened abortion (principal); O34.81 Maternal care for other abnormalities of pelvic organs, first trimester; N83.11 Corpus luteum cyst of right ovary; Z3A.10 10 weeks gestation of pregnancy

== ENCOUNTER 2022-04-28 11:36 | Outpatient (CLI) | payer OTHER | END 2022-04-28 11:37 | disposition home or self-care (01) | LOC: LAB.N 11:36 | PROVIDERS: ATTEND Nurse Practitioner Obstetrics & Gynecology | DX: Z36.89 Encounter for other specified antenatal screening (principal) | CPT/HCPCS: 36415; 85025; 86592; 86762; 86787; 86803; 86850; 86900; 86901; 87340; 87389 ==

== ENCOUNTER 2022-05-03 13:12 | Outpatient (CLI) | payer OTHER ==
[2022-05-03 13:39] LABS: BASOPHILS % (AUTO) 0.1 %; EOSINOPHILS # (AUTO) 0.7 10^3/uL (0.0-0.7); EOSINOPHILS % (AUTO) 6.8 %; HGB - HEMOGLOBIN 11.2 g/dL (12.0-16.0); LYMPHOCYTES # (AUTO) 2.2 10^3/uL (1.5-3.5); LYMPHOCYTES % (AUTO) 22.3 %; MEAN CORPUSCULAR HEMOGLOBIN 29.7 pg (27.0-31.0); MEAN CORPUSCULAR HGB CONC 33.9 g/dL (32.0-36.0); MEAN CORPUSCULAR VOLUME 87.5 fL (81.0-99.0); MEAN PLATELET VOLUME 10.5 fL (7.9-10.8); MONOCYTES # (AUTO) 0.4 10^3/uL (0.0-1.0); MONOCYTES % (AUTO) 4.4 %; NEUTROPHILS # (AUTO) 6.5 10^3/uL (1.5-6.6); PLT - PLATELET COUNT 260 10^3/uL (130-450); RED BLOOD COUNT 3.77 10^6/uL (4.20-5.40); RED CELL DISTRIBUTION WIDTH 13.2 % (12.0-15.0); WHITE BLOOD COUNT 9.8 x10^3/uL (4.8-10.8)
[2022-05-04 07:08] LABS: RPR Non Reactive (Non Reactive)
[2022-05-04 11:08] LABS: HBsAG SCREEN Negative (Negative); HCV AB Non Reactive (Non Reactive)
[2022-05-04 13:08] LABS: VARICELLA-ZOSTER AB IGG 1164 index (Immune >165)
[2022-05-05 03:07] LABS: HIV SCREEN 4TH GENERATION Non Reactive (Non Reactive)
== END 2022-05-03 13:13 | disposition home or self-care (01) ==
LOC: LAB 13:12
PROVIDERS: ATTEND Nurse Practitioner Obstetrics & Gynecology
DX: Z36.89 Encounter for other specified antenatal screening (principal)
CPT/HCPCS: 36415; 85025; 86592; 86762; 86787; 86803; 86850; 86900; 86901; 87340; 87389

== ENCOUNTER 2022-06-12 13:42 | Outpatient (CLI) | payer OTHER ==
--- NOTE | 2022-06-12 17:24 | Ultrasound Report ---
PROCEDURE: OB Detailed Eval INDICATIONS: SUPERVISION OF OUTSIDE/PRIOR DATING DATA: Last menstrual period (LMP): 01/11/2022. LMP-based estimated date of delivery (ANGE): 10/18/2022. First dating scan (date and location): 03/18/2022. Estimated date of delivery (ANGE) from first dating scan: 10/14/2022. TECHNIQUE: Real-time scanning was performed of the fetus, with image documentation and biometric measurements. Endovaginal scanning: Not performed COMPARISON: 03/18/2022. FINDINGS: General: A single living intrauterine gestation is present. Presentation: Variable Placenta: Placental position is anterior, without previa. Amniotic fluid index: 15.5 cm. Largest pocket measured 6.2 cm heart rate: 164 beats per minute. Maternal cervical canal: 3.1 cm long; normal length is 2.5 cm or more. Right ovarian cyst is again noted. biometrics: Biparietal diameter: 5.38 cm, 22 weeks and 3 days Head circumference: 20.45 cm, 22 weeks and 4 days Abdominal circumference: 18.8 cm, 23 weeks and 4 days Femur length: 3.97 cm, 22 weeks and 6 days Estimated gestational age from initial scan: 22 weeks and 2 days Composite gestational age from present scan: 22 weeks and 6 days Estimated weight and percentile: 565 g which correlates with the 84th percentile. Measurement variability in biometric dating: +/- 10 days from 12-20 weeks gestation, +/- 2 weeks from 20-30 weeks gestation, +/- 3 weeks at 30 weeks gestation or later. Anatomic survey: Neuro: Ventricles are normal at less than 10 mm. Cisterna magna is normal at 3-11 mm. Cerebellum i s normal in size and morphology. Nuchal skin fold: Normal at less than 6 mm between 14 and 20 weeks gestational age. Face: Nose and lips are normal. Facial profile are not well seen. Spine: No evidence for spina bifida. Heart: 4-chambered heart and ventricular outflow tracts are not well seen.. Diaphragm: Diaphragm is now well seen. Stomach: Left-sided stomach is present. Kidneys: kidneys are well visualized. Cord: 3 vessel cord has orthotopic insertion. Bladder: Normal in size. Extremities: All 4 extremities are visualized. IMPRESSION: Single living intrauterine gestation with estimated sonographic gestational age of approximately 22 w eeks and 6 days which is concordant with gestational age by initial scan of approximately 22 weeks an d 2 days. Normal interval growth has occurred. Estimated weight of approximately 565 g which co rrelates with the 84th percentile. The facial profile, cardiac views, diaphragm, and kidneys were not well visualized secondary to positioning. Follow-up imaging recommended. Reviewed by: Cooper Brenner MD on 06/12/2022 5:23 PM PDT Approved by: Cooper Brenner MD on 06/12/2022 5:23 PM PDT Station ID: [id number]
== END 2022-06-12 13:43 | disposition home or self-care (01) ==
LOC: DI 13:42
PROVIDERS: ATTEND Nurse Practitioner Obstetrics & Gynecology
DX: Z34.02 Encounter for supervision of normal first pregnancy, second trimester (principal); Z36.89 Encounter for other specified antenatal screening

== ENCOUNTER 2022-07-11 11:32 | Outpatient (CLI) | payer OTHER ==
[2022-07-11 12:56] LABS: HCT - HEMATOCRIT 32.1 % (37.0-47.0); HGB - HEMOGLOBIN 10.7 g/dL (12.0-16.0); MEAN CORPUSCULAR HEMOGLOBIN 30.3 pg (27.0-31.0); MEAN CORPUSCULAR HGB CONC 33.3 g/dL (32.0-36.0); MEAN CORPUSCULAR VOLUME 90.9 fL (81.0-99.0); MEAN PLATELET VOLUME 9.8 fL (7.9-10.8); RED BLOOD COUNT 3.53 10^6/uL (4.20-5.40); RED CELL DISTRIBUTION WIDTH 13.3 % (12.0-15.0)
== END 2022-07-11 11:33 | disposition home or self-care (01) ==
LOC: LAB 11:32
PROVIDERS: ATTEND Nurse Practitioner Obstetrics & Gynecology
DX: Z36.9 Encounter for antenatal screening, unspecified (principal); Z67.91 Unspecified blood type, Rh negative
CPT/HCPCS: 36415; 82950; 85027; 86850

== ENCOUNTER 2022-09-04 12:51 | Outpatient (CLI) | payer OTHER ==
--- NOTE | 2022-09-04 16:06 | Ultrasound Report ---
PROCEDURE: OB F/U or Repeat INDICATIONS: SUPERVISION OF OUTSIDE/PRIOR DATING DATA: Last menstrual period (LMP): 01/11/2022. LMP-based estimated date of delivery (ANGE): 10/18/2022. First dating scan (date and location): 03/18/2022. Estimated date of delivery (ANGE) from first dating scan: 10/14/2022. The below data below was generated using the ultrasound ANGE of 10/14/2022 TECHNIQUE: Real-time scanning was performed of the fetus, with image documentation and biometric measurements. COMPARISON: OB ultrasound 06/12/2022 FINDINGS: General: A single living intrauterine gestation is present. Presentation: Vertex Placenta: Placental position is anterior, without previa. Amniotic fluid index: 16.3 cm, within normal limits for gestational age. heart rate: 124 beats per minute. Maternal cervical canal: 4.3 cm long; normal length is 2.5 cm or more. biometrics: Estimated gestational age from initial scan: 34 weeks 2 days Other: Four-chamber heart, outflow tracts, diaphragm, kidneys as well as facial profile/nose lips are within normal limits.. IMPRESSION: Single live intrauterine with gestational age measuring 34 weeks 2 days. Remaining anatomy is within normal limits. Reviewed by: Sarah Navarro MD on 09/04/2022 4:04 PM PDT Approved by: Sarah Navarro MD on 09/04/2022 4:04 PM PDT Station ID: [id number]
== END 2022-09-04 12:52 | disposition home or self-care (01) ==
LOC: DI 12:51
PROVIDERS: ATTEND Nurse Practitioner Obstetrics & Gynecology
DX: Z34.03 Encounter for supervision of normal first pregnancy, third trimester (principal); Z36.89 Encounter for other specified antenatal screening

== ENCOUNTER 2022-10-03 20:59 | Outpatient (CLI) | payer OTHER ==
[2022-10-03 21:29] VITALS: BP 103/66; O2SAT 99
--- NOTE | 2022-10-23 09:26 | PROVIDER PROGRESS NOTE ---
- HPI Chief Complaint: Labor Check Current : Current EDU 10/17/22 Gestation 38 Weeks and 0 Days 3 Para 1 Vital Signs Temperature 36.8 C 10/03/22 21:25 Heart Rate 93 10/03/22 21:25 Respiratory Rate 16 10/03/22 21:25 Blood Pressure 103/66 10/03/22 21:25 O2 Saturation 99 10/03/22 21:25 Temperature 36.8 C 10/03/22 23:06 Heart Rate 89 10/03/22 23:06 Respiratory Rate 16 10/03/22 23:06 Blood Pressure 103/66 10/03/22 23:06 O2 Saturation 99 10/03/22 21:25 If not protocol: Oxygen Flow, liters/minute - Procedures OB Procedure Performed: NST Diagnosis/Indication for NST: Other NST Procedure: NST Procedure Start Date 10/03/22 Start Time 20:11 Stop Time 22:43 Vibroacoustic Stimulation Used No Patient States Movement Yes Procedure Details: Stephanie presents to [facility] with c/o hip discomfort and concerned she may be in labor. She denies vaginal bleeding, leakage of fluid or contractions. She reports +FM. NST reactive. FHR baseline 140s, moderate variability, + accels, no decels Occasional mild contraction appreciated via tocometry. SVE upon arrival 4/60/-2 and vertex with intact membranes Repeat SVE 2 hours later unchanged. Pt released home with precautions. FINAL DIAGNOSIS: False labor >37wks gestation
== END 2022-10-03 23:01 | disposition home or self-care (01) ==
LOC: WFO 20:59 → FBP 21:01 → WFO 23:01
PROVIDERS: ATTEND Nurse Practitioner Obstetrics & Gynecology
DX: O47.1 False labor at or after 37 completed weeks of gestation (principal); Z3A.38 38 weeks gestation of pregnancy
CPT/HCPCS: 59025; 99215

== ENCOUNTER 2022-10-05 16:39 | Inpatient (IN) | payer OTHER ==
[2022-10-05 17:35] LABS: RUPTURE OF MEMBRANES PLUS POSITIVE (NEGATIVE)
[2022-10-05] MEDS ORDERED: LACTATED RINGERS 1,000 ML ONE (17:47)
--- NOTE | 2022-10-05 17:52 | HISTORY & PHYSICAL EXAMINATION ---
Admit History - Visit Reason Visit Reason: Contractions, Membranes rupture - : 3 Parity: 1 Premature: 0 Ectopic: 0 : 1 Care: positive: [facility] Risk/History: positive: None Complications This : positive: None Smoking Status: Never smoker - Mother's Labs Mother's Blood Type: positive: B Mother's RH: positive: Negative GBS: positive: Group B Step Negative Rubella Status: positive: Immune - HPI Current EDU 10/17/22 Gestation 38 Weeks and 2 Days 3 Vital Signs Temperature 36.6 C 10/05/22 17:06 Heart Rate 88 10/05/22 17:06 Respiratory Rate 16 10/05/22 17:06 Blood Pressure 129/82 H 10/05/22 17:06 O2 Saturation 98 10/05/22 17:06 Temperature 36.6 C 10/05/22 17:27 Heart Rate 88 10/05/22 17:06 Respiratory Rate 16 10/05/22 17:06 Blood Pressure 129/82 H 10/05/22 17:06 O2 Saturation 98 10/05/22 17:06 If not protocol: Oxygen Flow, liters/minute - NST Procedure NST Procedure Start Time 20:11 Stop Time 22:43 - Results and Plan Plan: NST reactive. FHR baseline 140s, moderate variability, + accels, no decels Contractions palpate strong every 2-3 minutes with soft resting tone Meds/Allgy - Home Medications Home Medications: Ambulatory Orders Medication Instructions Recorded Confirmed HYDROcod/ACETAM 5/325 [[place]co 5/325] 1 - 2 ea PO Q6H PRN #8 tablet 10/30/19 - Allergies Allergies/Adverse Reactions: Allergies Allergy/AdvReac Type Severity Reaction Status Date / Time No Known Drug Allergies Allergy Verified 10/30/19 00:04 Review of Systems - Constitutional Constitutional: denies: Fatigue, Fever, Chills, Malaise - Eyes Eyes: denies: Blurred vision, Spots in vision, Dipolpia - Cardiovascular Cariovascular: denies: Irregular heart rate, Palpitations, Chest pain - Respiratory Respiratory: denies: Cough, Wheezing, SOB at rest - Gastrointestinal Gastrointestinal: denies: Constipation, Diarrhea, Nausea, Vomiting - Genitourinary Genitourinary: denies: Dysuria - Musculoskeletal Musculoskeletal: denies: Back pain - Integumentary Integumentary: denies: Rash, Pruritis - Neurological Neurological: denies: Headache - Psychiatric Psychiatric: denies: Depression, Anxiety - Hematologic/Lymphatic Hematologic/Lymphatic: denies: Anemia Physical - Abdominal Exam Vital Signs: Temp Pulse Resp BP Pulse Ox O2 Flow Rate 36.6 C 88 16 129/82 H 98 10/05/22 17:27 10/05/22 17:06 10/05/22 17:06 10/05/22 17:06 10/05/22 17:06 Contraction Frequency (min/apart): 2-3 Contraction Intensity: positive: Strong Uterine Resting Tone: positive: Soft - Monitoring Heart Rate Baseline: 140 Strip Review: positive: Category I - Presentation Presentation: positive: Vertex - Vaginal Exam Membranes: positive: Membranes ruptured Dilation (in cm): 5 Effacement (%): 80 Station: positive: -1 Cervical Position: positive: Midposition Plan for Labor - Plan For Labor I expect patient to be DC'd or transferred within 96 hours.: Yes Plan for Labor: HPI: This 27yo @ 38.4wks gestation by LMP c/w 9.4wk U/S who presents to [facility] with c/o contractions and vaginal leakage of clear fluid at 1555 today. Upon arrival FHR baseline 140s with moderate variability, + accels, no decels. Her contractions palpate strong every 2-3 minutes with soft resting tone. SVE 8/90/0 and vertex. A ROM+ was collected and positive. She was admitted to [facility] for expectant management. She has been a patient of [facility] for the duration of her which has remained uncomplicated with the exception of mild anemia for which she takes a daily oral iron supplement. She is supported by her [facility] today. 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 SAB x1. Denies history of gonorrhea, chlamydia, genital herpes, oral herpes or any other STI. Sexual partner does NOT have HSV (oral or genital). Medical Hx: anxiety/depression Surgical Hx: none Social Hx: Monogamous with male partner. Stopped drinking alcohol due to . Reports daily use of tobacco products and vapes. Denies current use of marijuana or other recreational drugs. Reports that she is safe in current relationship. Family Hx: Denies family history of congenital anomalies, Cystic Fibrosis or chromosomal abnormalities. Allergies: NKDA Medications: PNV, FeSO4 course: B negative, antibody negative Rubella immune; varicella immune Initial U/S @ 9.4wks c/w LMP dating FAS WNL with the exception of poor visualization of facial profile, cardiac views, diaphragm, and kidneys due to positioning. Size c/w dating (EFW 84%tile). 3VC. CARLYLE WNL. Glucola 115 Antibody negative 07/11/2022 Rhogam administered 07/18/2022 F/u FAS WNL. Four chamber heart, outflow tracts, diaphragm, kidneys as well as facial profile/nose lips are within normal limits. GBS negative Physical exam: Normocephalic, atraumatic Heart RRR w/o M/G/R Lungs CTAB Abdomen gravid, soft, nontender EFW 3500g FHR baseline 140s, moderate variability, + accels, no decels Contractions palpate firm every 2-3 minutes with soft resting tone SVe 5/90/0 and vertex. Leakage of clear vaginal fluid Bilateral LE's no edema. Mood is good. Assessment: 27yo @ 38.4wks gestation by LMP c/w 9.4wk U/S Active labor FHR Category I GBS negative Plan: Admit to [facility] for expectant management. Continuous monitoring. Jacuzzi PRN. Nitrous oxide PRN. Epidural per maternal request. Anticipate .
[2022-10-05] MEDS ORDERED: miSOPROStoL 200 MCG TABLET PR PRN (17:53)
[2022-10-05] MEDS ORDERED: hydrALAZINE INJ 20 MG/ML VIAL IVP PRN ×2 (17:53)
[2022-10-05] MEDS ORDERED: LABETALOL 20 MG/4 ML SYRINGE IVP PRN ×3 (17:53)
[2022-10-05] MEDS ORDERED: miSOPROStoL 200 MCG TABLET BC PRN (17:53)
[2022-10-05] MEDS ORDERED: lidocaine 1% 20 ML MDV ID PRN (17:53)
[2022-10-05] MEDS ORDERED: CARBOPROST TROMETHAMINE 250 MCG/ML AMP IM PRN (17:53)
[2022-10-05] MEDS ORDERED: OXYTOCIN/SODIUM CHLORIDE 500 ML IV PRN (17:53)
[2022-10-05] MEDS ORDERED: TRANEXAMIC ACID IN NACL 1,000 MG/100 ML BAG IV PRN (17:53)
[2022-10-05] MEDS ORDERED: NIFEdipine 10 MG CAPSULE PO PRN (17:53)
[2022-10-05] MEDS ORDERED: TERBUTALINE 1 MG/ML VIAL SUBQ PRN (17:53)
[2022-10-05] MEDS ORDERED: SODIUM CHLORIDE FLUSH 0.9% 10 ML SYRINGE IVP PRN (17:53)
[2022-10-05] MEDS ORDERED: OXYTOCIN 10 UNIT/ML VIAL IM PRN (17:53)
[2022-10-05] MEDS ORDERED: METHYLERGONOVINE 0.2 MG/ML VIAL IM PRN (17:53)
[2022-10-05] MEDS ORDERED: SODIUM CHLORIDE FLUSH 0.9% 10 ML SYRINGE IVP SCH (18:00)
[2022-10-05] MEDS ORDERED: LACTATED RINGERS 1,000 ML IV SCH (18:00)
[2022-10-05] MEDS ORDERED: ROPIVACAINE 0.2% 200 MG/100 ML BAG EP ONE (18:01)
[2022-10-05 18:15] LABS: BASOPHILS % (AUTO) 0.3 %; EOSINOPHILS # (AUTO) 0.2 10^3/uL (0.0-0.7); EOSINOPHILS % (AUTO) 1.3 %; LYMPHOCYTES # (AUTO) 2.1 10^3/uL (1.5-3.5); LYMPHOCYTES % (AUTO) 13.9 %; MEAN CORPUSCULAR HEMOGLOBIN 30.8 pg (27.0-31.0); MEAN CORPUSCULAR HGB CONC 34.3 g/dL (32.0-36.0); MEAN CORPUSCULAR VOLUME 89.7 fL (81.0-99.0); MEAN PLATELET VOLUME 10.6 fL (7.9-10.8); MONOCYTES # (AUTO) 0.8 10^3/uL (0.0-1.0); MONOCYTES % (AUTO) 5.3 %; NEUTROPHILS # (AUTO) 11.8 10^3/uL (1.5-6.6); NEUTROPHILS % (AUTO) 78.7 %; PLT - PLATELET COUNT 225 10^3/uL (130-450); RED CELL DISTRIBUTION WIDTH 13.5 % (12.0-15.0)
[2022-10-05] MEDS ORDERED: diphenhydrAMINE INJ 50 MG/ML VIAL IVP PRN (18:57)
[2022-10-05] MEDS ORDERED: NALBUPHINE 10 MG/ML AMP IVP PRN (18:57)
[2022-10-05] MEDS ORDERED: ROPIVACAINE 0.2% 200 MG/100 ML BAG EP PRN (18:57)
[2022-10-05] MEDS ORDERED: ePHEDrine 50 MG/ML VIAL IVP PRN (18:57)
[2022-10-05] MEDS ORDERED: METOCLOPRAMIDE 10 MG/2 ML VIAL IVP PRN (18:57)
[2022-10-05] MEDS ORDERED: ONDANSETRON 4 MG/2 ML VIAL IVP PRN (18:57)
[2022-10-05] MEDS ORDERED: NALOXONE 0.4 MG/ML VIAL IVP PRN (18:57)
--- NOTE | 2022-10-05 19:03 | ANESTHESIA ---
Pre-Anesthesia VS, & Labs - Diagnosis active labor - Procedure labor epidural Vital Signs: Temp Pulse Resp BP Pulse Ox O2 Flow Rate 36.6 C 88 16 129/82 H 98 10/05/22 17:27 10/05/22 17:06 10/05/22 17:06 10/05/22 17:06 10/05/22 17:06 Height: 5 ft 1 in Weight (kg): 58.513 kg Body Mass Index: 24.3 BMI Classification: Normal - NPO Other (clears) - Is Patient ?: Yes - Lab Results Current Lab Results: Laboratory Tests 10/05/22 17:25: WBC 15.0 H, RBC 3.90 L, Hgb 12.0, Hct 35.0 L, MCV 89.7, MCH 30.8, MCHC 34.3, RDW 13.5, Plt Count 225, MPV 10.6, Neut # (Auto) 11.8 H, Lymph # (Auto) 2.1, [place] # (Auto) 0.8, Eos # (Auto) 0.2, Baso # (Auto) 0.0, Absolute Nucleated RBC 0.00, Nucleated RBC % 0.0 Fish Bones: 10/05/22 17:25 Home Medications and Allergies Active Medications Carboprost Tromethamine (Carboprost Tromethamine 250 Mcg/Ml Amp) 250 mcg IM .ONCE PRN PRN Reason: Hemorrhage Hydralazine HCl (Hydralazine Inj 20 Mg/Ml Vial) 5 - 10 mg IVP Q20M PRN; Protocol PRN Reason: SBP> or= 160 OR DBP> or= 110 Hydralazine HCl (Hydralazine Inj 20 Mg/Ml Vial) 10 mg IVP .ONCE PRN; Protocol PRN Reason: SBP> or= 160 OR DBP> or= 110 Lactated Ringer's (Lr) 1,000 mls @ 125 mls/hr IV .Q8H MARC Last Admin: 10/05/22 18:09 Dose: 125 mls/hr Oxytocin/Sodium Chloride (Pitocin/Sodium Chloride) 500 mls @ 999 mls/hr IV PRN PRN; Protocol PRN Reason: POST- HEMORR PREVENTION Tranexamic Acid (Tranexamic 1,000 Mg/100ml-Nacl) 1,000 mg in 100 mls @ 600 mls/hr IV Q30M PRN PRN Reason: EBL >1200mL and within 3hr Labetalol HCl (Labetalol 20 Mg/4 Ml Syringe) 20 - 80 mg IVP Q10M PRN; Protocol PRN Reason: SBP> or= 160 OR DBP> or= 110 Labetalol HCl (Labetalol 20 Mg/4 Ml Syringe) 20 mg IVP .ONCE PRN; Protocol PRN Reason: SBP> or= 160 OR DBP> or= 110 Labetalol HCl (Labetalol 20 Mg/4 Ml Syringe) 20 - 40 mg IVP Q10M PRN; Protocol PRN Reason: SBP> or= 160 OR DBP> or= 110 Lidocaine HCl (Lidocaine 1% 20 Ml Mdv) 20 ml ID .ONCE PRN PRN Reason: PERINEAL REPAIR Stop: 10/08/22 17:53 Methylergonovine Maleate (Methylergonovine 0.2 Mg/Ml Vial) 0.2 mg IM .ONCE PRN PRN Reason: Hemorrhage Misoprostol (Misoprostol 200 Mcg Tablet) 600 mcg BC .ONCE PRN PRN Reason: Hemorrhage Misoprostol (Misoprostol 200 Mcg Tablet) 800 mcg TN .ONCE PRN PRN Reason: Hemorrhage Nifedipine (Nifedipine 10 Mg Capsule) 10 - 20 mg PO Q20M PRN; Protocol PRN Reason: SBP> or= 160 OR DBP> or= 110 Oxytocin (Oxytocin 10 Unit/Ml Vial) 10 unit IM .ONCE PRN PRN Reason: Step One if no IV access. Sodium Chloride (Sodium Chloride Flush 0.9% 10 Ml Syringe) 10 ml IVP PRN PRN PRN Reason: NEEDED PER PROVIDER ORDERS Sodium Chloride (Sodium Chloride Flush 0.9% 10 Ml Syringe) 10 ml IVP Q8H MARC Terbutaline Sulfate (Terbutaline 1 Mg/Ml Vial) 0.25 mg SUBQ .ONCE PRN PRN Reason: Tachystole Allergies/Adverse Reactions: Allergies Allergy/AdvReac Type Severity Reaction Status Date / Time No Known Drug Allergies Allergy Verified 10/30/19 00:04 Anes History & Medical History - Anesthetic History Anesthesia Complications: reports: No previous complications - Medical History Cardiovascular: reports: None Pulmonary: reports: None Gastrointestinal: reports: None Urinary: reports: None Neuro: reports: None Musculoskeletal: reports: None Endocrine/Autoimmune: reports: None Blood Disorders: reports: None Skin: reports: None Smoking Status: Never smoker - Obstetrical History : 3 Parity: 1 Events: reports: None Complications: reports: None Exam General: Alert, Oriented x3 Dental: WNL Mouth Opening: Greater than 4 Fingerbreadths Neck Mobility: Normal Mallampati classification: II Thyromental Distance: 4-6 cm Respiratory: Lungs clear Cardiovascular: Regular rate Plan Anesthesia Type: Epidural Consent for Procedure(s) Verified and Reviewed: Yes Code Status: Attempt Resuscitation ASA classification: 2-Mild systemic disease Is this case an emergency?: No
[2022-10-05] MEDS ORDERED: HYDROCORTISONE 1% CREAM 28 GM TUBE PR PRN (19:31)
[2022-10-05] MEDS ORDERED: WITCH HAZEL/GLYCERIN 1 PAD TOP PRN (19:31)
--- NOTE | 2022-10-05 19:38 | DELIVERY NOTE ---
Delivery Note - Labor Labor: positive: Spontaneous - Delivery Method Delivery Method: positive: Spontaneous vaginal delivery - Presentation Presentation: positive: Vertex, Compound, RIK - left occiput anterior - Nuchal Cord Nuchal Cord: positive: Present, Reduced - Amniotic Fluid Description Amniotic Fluid Description: positive: Clear - Episiotomy Type Episiotomy Type: positive: None - Laceration Laceration: positive: None - Delivery Outcome Delivery Outcome: positive: Livebirth - [place] : positive: Placed in direct skin contact with mother, Stimulated, Warmed, [place] used [place] sex: positive: Female - Cord Cord: positive: 3 vessels - Placenta Placenta: positive: Intact, Spontaneous - Estimated Blood Loss Estimated Blood Loss (in cc): 200 - Post Delivery Events Post Delivery Events: positive: No post delivery events - Delivery Comments (Free Text/Narrative) Delivery Comments (Free Text/Narrative): Labor: This 27yo by LMP c/w 9.4wk U/S who presents to [facility] with c/o contractions and vaginal leakage of fluid and found to be in active labor. Her cervix was 5/90/-1 and vertex with ruptured membranes with clear amniotic fluid that occurred at 1555. FHR pattern demonstrated a Category I pattern throughout labor. Precipitous labor course. Epidural was placed per maternal request. Pt progressed to c/c/+1 with onset of active pushing at 1842. : Normal SVB of a viable female with right compound hand on 10/05/2022 at 1848. Nuchal cord x 1 was reduced. The was placed on maternal abdomen, stimulated, dried, and placed skin to skin. 's were 8/9 at 1 and 5 minutes respectively. Pitocin was administered via IV for hemostasis. The umbilical cord was allowed to stop pulsating at which time it was doubly cl amped by CNM and cut by FOB. 3VC. Cord blood was obtained. Fundal massage and gentle cord traction applied for active management of the third stage of labor. Placenta delivered spontaneously and intact at 1852. EBL 200mL. Fourth stage: Uterine fundus firm and there is no excessive bleeding. The perineum, vagina, and cervix were inspected and found to be intact. Family bonding well. Both mother and baby were left in stable condition.
[2022-10-05] MEDS: ACETAMINOPHEN 500 MG TABLET PO SCH (19:52)
[2022-10-05] MEDS: IBUPROFEN 800 MG TABLET PO SCH (19:52)
[2022-10-05] MEDS ORDERED: DOCUSATE SODIUM 100 MG CAPSULE PO SCH (21:00)
[2022-10-06] MEDS: IBUPROFEN 800 MG TABLET PO SCH ×3 (02:16→15:13)
[2022-10-06] MEDS: ACETAMINOPHEN 500 MG TABLET PO SCH ×2 (04:08→11:49)
[2022-10-06 10:22] VITALS: O2SAT 100
[2022-10-06] MEDS ORDERED: RHO(D) IMMUNE GLOBULIN 300 MCG SYRINGE IM ONE (15:03)
--- NOTE | 2022-10-06 16:13 | Discharge Plan ---
Discharge Plan Problem Reviewed?: Yes Disposition: Home, Self Care Condition: Good Diet: Regular Activity Restrictions: No Restrictions Shower Restrictions: No Driving Restrictions: No Weight Bearing: Full Weight Instruction Topics: Vaginal After No Smoking: If you smoke, Please STOP! Call for help. Follow-up with: Manuela Orozco CNM, [facility] [Provider Admit Priv/Credential] - 1 Week (Telehealth visit with KIMBERLEY [place]on/DORIAN on October 14 at 12:15pm.)
--- NOTE | 2022-10-06 16:32 | DISCHARGE SUMMARY ---
Discharge Summary Condition at Discharge: Good Discharge Disposition: 01 Home, Self Care - HOSPITAL COURSE Hospital Course: Date of Admission: 10/05/2022 Date of Discharge: 10/06/2022 Diagnosis on Admission: 1. 27yo @ 38.4wks gestation by LMP c/w 9.4wk U/S 2. Active labor 3. FHR Category I 4. GBS negative Diagnosis on Discharge: 1. 27yo PPD#1 s/p TSVB viable female infant 2. 3. Rh negative - rhogam indicated and administered 4. Normal recovery Brief History: She is a patient of [facility] who presented to [facility] with c/o contractions and vaginal leakage of clear fluid. Upon arrival her cervix was 5/90/-1 and vertex with ruptured membranes. FHR demonstrated Category I pattern throughout labor. Epidural placed per maternal request. Precipitous labor course. She progressed to spontaneously deliver a viable female on 10/05/2022 over intact perineum at 1848. Apgars were 8/9 at 1 and 5 minutes respectively. EBL 200mL. She has been doing well in her course. She is ambulating and tolerating a regular diet. She is urinating without difficulty and her lochia is normal. Her pain is well controlled with oral medications. She is exclusively bottle feeding formula and she intended and she is bonding well with her baby. She will be discharged home today on day #1 with instructions to continue taking her vitamin while and to continue taking ibuprofen and tylenol over the counter as needed for pain management. She intends to follow up with myself at [facility] in 1 week for routine visit or sooner if needed. She has been given precautions to call if she has any worsening fevers, chills, abdominal pain, increased vaginal bleeding or foul smelling vaginal lochia. Physical exam: Normocephalic, atraumatic. Heart RRR w/o M/G/R, lungs CTAB, abdomen soft and nontender with fundus firm at U. Perineum intact, light lochia rubra, bilateral LE's no edema. Mood is good. - ALLERGIES Allergies/Adverse Reactions: Allergies Allergy/AdvReac Type Severity Reaction Status Date / Time No Known Drug Allergies Allergy Verified 10/30/19 00:04 - MEDICATIONS Home Medications: Ambulatory Orders Medication Instructions Recorded Confirmed HYDROcod/ACETAM 5/325 [[place] 5/325] 1 - 2 ea PO Q6H PRN #8 tablet 10/30/19 - LABS Result Diagrams: 10/05/22 17:25
[2022-10-06 18:15] VITALS: BP 106/66
--- NOTE | 2022-10-06 20:03 | Labor Flowsheet ---
Labor Flowsheet Datetime Report Generated by CPN: 10/06/2022 20:03 Datetime: 10/06/2022 09:45 VITAL SIGNS NBP Sys/Shira/Mean (mmHg): 101 : 59 : 70 Pulse: 60 Datetime: 10/06/2022 03:15 Stage of : Datetime: 10/05/2022 21:01 Respirations: 20 SpO2 (%): 99 Temperature (C): 36.9 Temperature Route: Oral Datetime: 10/05/2022 19:38 PAIN Pain Scale: 5 Pain Presence: Intermittent Pain Type: Cramping Pain Location: Abdomen Datetime: 10/05/2022 18:48 UTERINE ACTIVITY Monitor Mode: External Frequency (min): 1-2 Quality: Strong Duration (sec): 50-70 Pattern: Tachysystole: > 5 Contractions in 10 Minutes Resting Tone (Palpate): Relaxed ASSESSMENT A Monitor Mode: Telemetry FHR Baseline Rate : 150 Variability: Moderate 6-25 bpm Accelerations: 15X15 Decelerations: Variable Category: Category II Oxygen Method: Room Air LaborFlag: Labor Datetime: 10/05/2022 18:45 VAGINAL EXAM Dilatation (cm): 10.0 Effacement (%): 100 Station: 1 Exam by: annette allison Cervix, Consistency: Soft Datetime: 10/05/2022 18:42 STAGE 2 Pushing: Urge to Push Pushing Position: Pushing with Contractions Pushing Progress: Descent with Pushing Datetime: 10/05/2022 18:34 Amniotic Fluid Color: Clear Amniotic Fluid Amount: Moderate Datetime: 10/05/2022 18:30 FHR Baseline Changes: No Baseline Change Patient Position/Activity: Left Extreme; Right Extreme Datetime: 10/05/2022 18:09 Epidural Procedure: Test Dose Datetime: 10/05/2022 18:00 Comments: interupted strip unable to determine deceleration vs maternal heart rate PATIENT CARE IV/Blood Work: IV Bolus Started Datetime: 10/05/2022 17:59 PROCEDURE TIME OUT Procedure Verify: Correct Patient Identity; Accurate Procedure Consent Form; Agreement on Procedure to be Done; Correct Patient Position; Addressed Need to Administer Antibiotics or Fluids for Irrigat ion; Safety Precautions Based on Patient History or Medication Use Epidural Positioning: Sitting Datetime: 10/05/2022 17:58 ANESTHESIA Anesthesia Plans: Epidural Anesthesia Comments: Darian Aube at bedside Datetime: 10/05/2022 17:55 COMMUNICATION Communication: Provider at Bedside Communication Comments: annette cooper at bedside
== END 2022-10-06 20:01 | disposition home or self-care (01) | DRG 807 ==
LOC: WFO 16:39 → FBP 16:41 → WFO 17:52 → FBP 17:53
PROVIDERS: ADMIT Nurse Practitioner Obstetrics & Gynecology; ATTEND Nurse Practitioner Obstetrics & Gynecology
PROC: 10E0XZZ Delivery of Products of Conception, External Approach (ICD-10-PCS; principal; 2022-10-05)
DX: O26.893 Other specified pregnancy related conditions, third trimester (principal); Z37.0 Single live birth; Z3A.38 38 weeks gestation of pregnancy; O62.3 Precipitate labor; O69.81X0 Labor and delivery complicated by cord around neck, without compression, not applicable or unspecified; Z67.21 Type B blood, Rh negative
CPT/HCPCS: 36415; 59025; 83033; 84112; 84443; 85025; 86850; 86870; 86880; 86900; 86901; 99215; A9270; J7120; 99213

== ENCOUNTER 2022-12-16 07:22 | Day surgery (SDC) | payer OTHER ==
[~2022-12-16 07:22] MED LIST: ACETAMINOPHEN 500 MG TABLET PO ONE; CELECOXIB 100 MG CAPSULE PO ONE; GABAPENTIN 400 MG CAPSULE ONE
[2022-12-16] MEDS ORDERED: LACTATED RINGERS 1,000 ML IV ONE ×3 (07:34→10:46)
[2022-12-16] MEDS ORDERED: BUPIVACAINE 0.25% PF 30 ML VIAL ONE (07:41)
[2022-12-16] MEDS ORDERED: NALOXONE 0.4 MG/ML VIAL IVP PRN (08:01)
[2022-12-16] MEDS ORDERED: ATROPINE ABBOJECT 1 MG/10 ML SYRINGE IVP PRN (08:01)
[2022-12-16] MEDS ORDERED: ePHEDrine 50 MG/ML VIAL IVP PRN (08:01)
[2022-12-16] MEDS ORDERED: ONDANSETRON 4 MG/2 ML VIAL IVP PRN ×2 (08:01→10:32)
[2022-12-16] MEDS ORDERED: fentaNYL 100 MCG/2 ML VIAL IVP PRN (08:01)
[2022-12-16] MEDS ORDERED: HYDROmorphone 0.5 MG/0.5 ML SYRINGE IVP PRN ×2 (08:01→10:32)
--- NOTE | 2022-12-16 08:01 | ANESTHESIA ---
Pre-Anesthesia VS, & Labs - Diagnosis desires sterilization - Procedure lap salpingectomy Vital Signs: Temp Pulse Resp BP Pulse Ox O2 Flow Rate 36 C L 72 14 116/82 H 100 12/16/22 07:40 12/16/22 07:40 12/16/22 07:40 12/16/22 07:40 12/16/22 07:40 Height: 5 ft 1 in Weight (kg): 49 kg Body Mass Index: 20.4 BMI Classification: Normal - NPO >8 hours - Is Patient ?: No - Lab Results Lab results reviewed: Yes Home Medications and Allergies Home Medications: Ambulatory Orders No Known Home Medications 12/11/22 No Known Home Medications 12/11/22 Allergies/Adverse Reactions: Allergies Allergy/AdvReac Type Severity Reaction Status Date / Time No Known Drug Allergies Allergy Verified 12/15/22 13:00 Anes History & Medical History - Anesthetic History Anesthesia Complications: reports: No previous complications Family history of Anesthesia Complications: Denies Family history of Malignant Hyperthermia: Denies - Medical History Cardiovascular: reports: Murmur Pulmonary: reports: None Gastrointestinal: reports: None Urinary: reports: None Neuro: reports: None Musculoskeletal: reports: None Endocrine/Autoimmune: reports: None Blood Disorders: reports: None Skin: reports: None Smoking Status: Current every day smoker Psychosocial: reports: No issues indicated Exam General: Alert, Oriented x3, Cooperative Dental: WNL Mouth Openin Fingerbreadth Neck Mobility: Normal Mallampati classification: II Thyromental Distance: 4-6 cm Respiratory: Lungs clear Cardiovascular: Regular rate Plan Anesthesia Type: General Consent for Procedure(s) Verified and Reviewed: Yes Code Status: Attempt Resuscitation ASA classification: 2-Mild systemic disease Is this case an emergency?: No
[2022-12-16 08:13] LABS: HCG UR QUAL NEGATIVE
[2022-12-16] MEDS ORDERED: KETOROLAC 30 MG/ML VIAL ONE (08:14)
[2022-12-16] MEDS ORDERED: PROPOFOL 500 MG/50 ML 500 MG/50 ML VIAL ONE (08:14)
[2022-12-16] MEDS ORDERED: ROCURONIUM 50 MG/5 ML VIAL ONE (08:14)
[2022-12-16] MEDS ORDERED: DEXAMETHASONE 4 MG/ML VIAL ONE (08:14)
[2022-12-16] MEDS ORDERED: MIDAZOLAM 2 MG/2 ML VIAL ONE (08:33)
[2022-12-16] MEDS ORDERED: LACTATED RINGERS 1,000 ML IV SCH (09:00)
[2022-12-16] MEDS ORDERED: BUPIVACAINE 0.25% PF 30 ML VIAL SUBQ ONE ×2 (09:52)
[2022-12-16] MEDS ORDERED: LIDOCAINE-PF 2% 10 ML AMP SUBQ ONE (09:58)
[2022-12-16] MEDS ORDERED: SUGAMMADEX 200 MG/2 ML VIAL IVP ONE (09:58)
[2022-12-16] MEDS ORDERED: LACTATED RINGERS 200 ML IV ONE ×2 (10:21)
[2022-12-16] MEDS ORDERED: oxyCODONE 5 MG TABLET PO PRN (10:32)
--- NOTE | 2022-12-16 10:55 | OPERATIVE REPORT ---
Operative Report - General Procedure Date: 12/16/22 Planned Procedure: laparoscopic bilateral salpingectomies for sterility. Pre-Op Diagnosis: desires sterilization Procedure Performed: laparoscopic bilateral salpingectomies. Post Op Diagnosis: sterilization performed - Procedure Note Primary Surgeon: Cher Pimentel MD Secondary Surgeon: KIMBERLEY Martinez Anesthesia Provider: Guillermo Chairez CRNA Anesthesia Technique: General ET tube Pathology: none IV Fluids (mL): 600 Estimated Blood Loss (mL): 5 Urine Output (mL): 25 Indications: desires sterility Findings: normal uterus tubes and ovaries. normal liver. Complications: none - Other Other Information/Narrative: Patient desires permanent sterility. She has signed the Medicaid tubal consent for more than 30 days but less than 180 days ago. She has signed the hospital consent form a few days prior to admission and was reviewed on date of surgery with no changes. test was negative. Patient was brought to the operating room where general anesthesia was administered through endotracheal tube. She was placed in lithotomy position with her legs in Og stirrups. She was prepped and draped in normal sterile fashion. Timeout was performed. Bladder was emptied. She had sequential compression devices on her lower extremities. No antibiotics were indicated. Speculum was placed cervix was grasped with a tenaculum and the uterine manipulator was placed. speculum was removed. gloves were changed. The inferior umbilicus was injected with some lidocaine and a small incision was made. The laparoscope was placed under direct visualization. The abdomen was insufflated with CO2 gas to 15 mmHg. 2 other trocars were placed in the right and left mid lower abdomen after injecting with Marcaine and making a small incision. These were both placed under direct visualization. The right tube was identified elevated. The LigaSure device was used to seal and removal of the fallopian tube. The tube was brought out through the trocar. Similar procedure was done on the left side. The areas of resection appeared hemostatic. The gas was renoved and hemostasis remained. The instruments were then all removed. Incisions were closed with Monocryl suture, Steri-Strip and bandage. Patient was then extubated and brought to the recovery room in stable condition. There were no complications.
[2022-12-16 11:12] VITALS: O2SAT 100
[2022-12-16] MEDS ORDERED: oxyCODONE 5 MG TABLET ONE (11:40)
[2022-12-16 12:36] VITALS: BP 103/84
--- NOTE | 2022-12-16 14:14 | ANESTHESIA POST OP EVALUATION ---
Anesthesia Post Eval - Post Anesthesia Eval Vitals: Last Vital Signs Temp 36.6 C 12/16/22 12:15 Pulse 57 L 12/16/22 12:15 Resp 16 12/16/22 12:15 BP 103/84 H 12/16/22 12:15 Pulse Ox 100 12/16/22 12:15 O2 Flow Rate CV Function Including HR & BP: Stable Pain Control: Satisfactory Nausea & Vomiting: Negative Mental Status: Baseline Respiratory Status: Airway Patent Hydration Status: Satisfactory Anesthesia Complications: None
== END 2022-12-16 07:23 | disposition home or self-care (01) ==
LOC: SDS 07:22
PROVIDERS: ATTEND Obstetrics & Gynecology
PROC: 0UT78ZZ Resection of Bilateral Fallopian Tubes, Via Natural or Artificial Opening Endoscopic (ICD-10-PCS; principal; 2022-12-16 08:30)
DX: Z30.2 Encounter for sterilization (principal); F17.290 Nicotine dependence, other tobacco product, uncomplicated
CPT/HCPCS: 58661; 81025; A9270; J7120

== ENCOUNTER 2023-08-30 20:40 | Emergency (ER) | payer OTHER ==
--- NOTE | 2023-08-30 22:27 | ED Physician Documentation ---
PD HPI HEENT - Stated complaint Stated Complaint: TOOTH PX - Chief complaint Chief Complaint: Heent - History obtained from History obtained from: Patient - Additional information Additional information: The patient comes to the emergency department chief complaint of dental pain. She has had problems with her left posterior most maxillary molar, but had been doing better until today. She states it has been quite painful and throbbing and she has noticed intermittent swelling of her face when the pain seems to ramp-up. She denies any fevers. She does have a dentist and she is going to call them tomorrow morning as today is Thursday. No other complaints at this time. PD PAST MEDICAL HISTORY - Past Medical History Past Medical History: Yes Cardiovascular: Murmur Respiratory: None Neuro: None Endocrine/Autoimmune: None GI: None NEWS VIDEO EDITOR: None : None HEENT: Chronic vision loss Psych: Depression, Anxiety Musculoskeletal: None Derm: None - Past Surgical History Past Surgical History: No - Present Medications Home Medications: Ambulatory Orders Medication Instructions Recorded Confirmed Acetaminophen 650 mg PO Q4HR PRN #30 ea 12/16/22 Ibuprofen [Motrin] 600 mg PO Q6H PRN #30 tab 12/16/22 oxyCODONE [Roxicodone] 2.5 - 5 mg PO Q4H PRN #24 tablet 12/16/22 Amoxicillin 500 mg PO TID 7 Days #21 cap 08/30/23 HYDROcod/ACETAM 5/325 [[place] 5/325] 1 - 2 tablet PO Q6H PRN #14 tablet 08/30/23 - Allergies Allergies/Adverse Reactions: Allergies Allergy/AdvReac Type Severity Reaction Status Date / Time No Known Drug Allergies Allergy Verified 08/30/23 21:32 - Social History Does the pt smoke?: No Smoking Status: Never smoker Does the pt drink ETOH?: No Does the pt have substance abuse?: No - Immunizations Immunizations are current?: Yes - POLST Patient has POLST: No PD ED PE NORMAL - Vitals Vital signs reviewed: Yes - General General: Alert and oriented X 3, No acute distress, Well developed/nourished - HEENT HEENT: Atraumatic, PERRL, EOMI, Moist mucous membranes, Pharynx benign (No edema of the oropharyngeal structures.), Other (No facial swelling. Dentition overall looks good but left posterior most maxillary molar is noted to have a small avulsion.) - Neck Neck: Supple, no meningeal sign, No adenopathy - Respiratory Respiratory: No respiratory distress - Derm Derm: Normal color, Warm and dry, No rash - Extremities Extremities: No deformity - Neuro Neuro: Alert and oriented X 3 - Psych Psych: Normal mood, Normal affect Results - Vitals Vitals: Vital Signs - 24 hr 08/30/23 21:29 Temperature 528.8 C H Heart Rate 79 Respiratory 16 Rate Blood Pressure 103/69 O2 Saturation 100 Oxygen O2 Source Room air PD Medical Decision Making - ED course Complexity details: considered differential, d/w patient ED course: The patient was started on amoxicillin here and given a prepack of hydrocodone. Prescriptions for the same where sent. The patient is advised to call her dentist office first thing tomorrow morning to set up a follow-up appointment for definitive care. We have discussed the usual indications for return. Departure - Departure Disposition: Home, Self Care Clinical Impression: Pain due to dental caries Condition: Stable Instructions: ED Tooth Pain Prescriptions: Amoxicillin 500 mg PO TID 7 Days #21 cap HYDROcod/ACETAM 5/325 [[place] 5/325] 1 - 2 tablet PO Q6H PRN #14 tablet PRN Reason: Pain Comments: You have been started on antibiotics here and given a prepack of pain medication to take as needed. Prescriptions for the same and been electronically transmitted to the [facility] pharmacy in [place]. You may take ibuprofen along with the pain medicine prescribed but because the prescribed medicine contains Tylenol, you should not take Tylenol along with it. Please separate any doses of Tylenol by 4 hours from any doses of the prescribed pain medication. It is important that you call your dentist's office first thing tomorrow morning to set up a follow-up appointment for definitive care. Forms: PCP List
[2023-08-30] MEDS: HYDROcod/ACET 5/325 Prepack 4 PO STA (22:32)
[2023-08-30] MEDS: AMOXICILLIN 250 MG CAPSULE PO STA (22:32)
[2023-08-30 22:48] VITALS: BP 127/68; O2SAT 98
== END 2023-08-30 22:43 | disposition home or self-care (01) ==
LOC: ED 20:40
DX: K02.9 Dental caries, unspecified (principal)
CPT/HCPCS: 99283; A9270